=== PATIENT | female | born 1945 | race Caucasian/White ===

== ENCOUNTER → 2016-05-27 | Outpatient (CLI) | payer MEDICARE, BC ==
[~2016-05-27] MED LIST: ASPI1TAB69 PO; ASPI81TA82 PO; CALC1TAB87 PO; COZA50TA PO; DILA2TAB2 PO; HYDR200T3 PO; METO25CR PO; METO25TA6 PO; MULTTAB67 PO; NAPR220T95 PO; OMEP20TA39 PO; OMEP40CA2 PO; TAB-TAB PO; VITA400C2 PO; VITA400C70 PO; ZOCO80TA PO
[2016-05-27 08:01] LABS: HEMATOCRIT 42.3 % (35.0-46.0); MEAN CELL VOLUME 94.9 FL (80.0-100.0); MEAN CORPUSCULAR HEMOGLOBIN 31.5 PG (27.0-34.0); MEAN CORPUSCULAR HGB CONC 33.2 % (32.0-36.0); PLATELET COUNT 263 TH/MM3 (150-450); RED BLOOD COUNT 4.46 MIL/MM3 (4.00-5.30); RED CELL DISTRIBUTION WIDTH 13.4 % (11.6-17.2); REVIEW FLAG FINAL; WHITE BLOOD COUNT 6.2 TH/MM3 (4.0-11.0)
[2016-05-27 08:18] LABS: ALKALINE PHOSPHATASE 88 U/L (45-117); ALT (GPT) 18 U/L (10-53); ANION GAP 7 MEQ/L (5-15); AST (GOT) 19 U/L (15-37); BICARBONATE 28.9 MEQ/L (21.0-32.0); BLOOD UREA NITROGEN 24 MG/DL (7-18); CHLORIDE 102 MEQ/L (98-107); GLOMERULAR FILTRATION RATE 60 ML/MIN (>89); GLUCOSE,FASTING 97 MG/DL (74-99); HDL CHOLESTEROL 95.3 MG/DL (40.0-60.0); LDL CHOLESTEROL 69 MG/DL (0-99); POTASSIUM 4.8 MEQ/L (3.5-5.1); SODIUM (NA) 138 MEQ/L (136-145); TOTAL BILIRUBIN ADULT 0.4 MG/DL (0.2-1.0)
== END ==
LOC: CLAB 07:21
PROVIDERS: ATTEND Family Medicine
DX: E78.5 Hyperlipidemia, unspecified (principal); I10 Essential (primary) hypertension
CPT/HCPCS: 36415; 80053; 80061; 85027

== ENCOUNTER → 2016-06-11 | Day surgery (SDC) | payer MEDICARE, BC ==
[~2016-06-11] MED LIST changes: -ASPI81TA82 PO; +BUPIVACAINE HCL PF 0.5% 30 ML VIAL ONE; -METO25CR PO; -OMEP20TA39 PO; +PROPOFOL 200 MG/20 ML AMP IV ONE; -TAB-TAB PO; +TRIAMCINOLONE ACETONIDE 40 MG/ML VIAL I-ARTICULR ONE; -VITA400C70 PO; +methylPREDNISolone ACETATE 40 MG/ML VIAL I-ARTICULR ONE
--- NOTE | 2016-06-15 09:38 | M6 ---
cc: LITA MEDRANO M.D. DATE: 06/11/2016 1945 PROCEDURE Fluoroscopically guided injection bilateral sacroiliac joints. History and physical was completed and signed. Consent was signed. Procedure site was marked. Medications were listed and reconciled. Pain score was recorded. Allergies were noted. Time out was taken. Fluoroscopy time was recorded where applicable. Sedation was administered or directed by Dr. Medrano. The patient was given oxygen. The patient was monitored by a registered nurse. Total procedure time was greater than 15 minutes. IV was started, blood pressure cuff, pulse oximeter and EKG were applied. The patient was placed in the prone position on a Hever table, sedated with small amounts of propofol titrated to effect. Vital signs were monitored and remained stable throughout the procedure. The sacral area was prepped with alcohol and 10% Betadine solution and draped with sterile drapes. Fluoroscopy was used shooting from medial to lateral to clearly visualize the posterior joint line of the bilateral sacroiliac joints. Separate sterile 5-inch 22-gauge spinal needles were advanced into these joints under fluoroscopic guidance. There was negative aspiration for blood or any other type of fluid. At each location the patient was given 2 mL of 0.5% Marcaine, 20 mg of Depo-Medrol and 20 mg of Kenalog. Following the procedure the patient was taken to the recovery room with stable vital signs, neurologically intact. W. MD CHIRAG Edwards/BRENDA /9:14 AM /9:34 AM
== END | disposition home or self-care (01) ==
LOC: PHSDC 07:34
PROVIDERS: ATTEND Pain Medicine Interventional Pain Medicine
DX: M54.5 Low back pain (principal)
CPT/HCPCS: 99152; G0260; J1030; J3301; 27096

== ENCOUNTER 2016-07-27 10:23 | Emergency (ER) | payer MEDICARE, BC ==
[~2016-07-27] VITALS: Ht 152.4 cm; Wt 50.0 kg
[~2016-07-27 10:23] MED LIST changes: -BUPIVACAINE HCL PF 0.5% 30 ML VIAL ONE; -CALC1TAB87 PO; -DILA2TAB2 PO; -HYDR200T3 PO; -PROPOFOL 200 MG/20 ML AMP IV ONE; -TRIAMCINOLONE ACETONIDE 40 MG/ML VIAL I-ARTICULR ONE; -methylPREDNISolone ACETATE 40 MG/ML VIAL I-ARTICULR ONE
[2016-07-27 10:25] VITALS: BP 173/83; PULSE 89; RESP 17; TEMP 98.1; O2SAT 98
[2016-07-27 10:37] VITALS: BP 160/93; PULSE 75; RESP 20; O2SAT 96
[2016-07-27] MEDS ORDERED: CALC1TAB87 PO (10:58)
[2016-07-27] MEDS ORDERED: ONDANSETRON HCL 4 MG/2 ML VIAL IM ONE (11:30)
[2016-07-27] MEDS ORDERED: KETOROLAC TROMETHAMINE 60 MG/2 ML (IM) VIAL IM ONE (11:30)
[2016-07-27] MEDS ORDERED: MORPHINE SULFATE 4 MG/ML INJ IM ONE (11:30)
--- NOTE | 2016-07-27 11:35 | PD ---
HPI Chief Complaint: Back/ Neck Pain or Injury Time Seen by Provider: 10:45 Travel History International Travel<30 days: No Contact w/Intl Traveler<30days: No Traveled to known affect area: No History of Present Illness HPI The patient was seen and examined in the presence of the nurse. She complains of back pain. No acute injury. She's had back pain for many many years. She' s had multiple back surgeries. She sees chronic pain management and gets sacroiliac joint injections. She had an MRI of the lumbosacral spine a few days ago which revealed spinal stenosis and a new lumbar compression fracture. She was referred to neurosurgery but that has not happened yet. Symptoms severity is moderate and at times severe. Worse with movement. No sciatic radiation. PFSH Past Medical History Arthritis: Yes Autoimmune Disease: No Blood Disorders: No Heart Rhythm Problems: No Cancer: No Cardiac Catheterization: Yes (1988,NO STENT) Cardiovascular Problems: No High Cholesterol: Yes Chest Pain: No Congestive Heart Failure: No Cerebrovascular Accident: No Diabetes: No Diminished Hearing: No Endocrine: No Gastrointestinal Disorders: Yes (CURRENTLY NAUSEATED, ACID REFLUX, DIVERTICULOSIS) GERD: Yes Glaucoma: Yes (BILATERAL) Genitourinary: Yes (UTI'S) Headaches: Yes Hepatitis: No Hiatal Hernia: No Hypertension: Yes Immune Disorder: No Implanted Vascular Access Dvce: Yes Musculoskeletal: Yes (OSTEOARTHRITIS,DEGENERATIVE DISC DISEASE, BACK/NECK PROBLEMS) Neurologic: No Psychiatric: No Reproductive: No Respiratory: Yes (ACID REFLUX, HX OF STOMACH ULCER) Migraines: Yes Myocardial Infarction: No Seizures: No Thyroid Disease: No Ulcer: No Influenza Vaccination: Yes PNEUMOCCOCAL Vaccine (Year): 1 Menopausal: Yes Past Surgical History Abdominal Surgery: Yes (PARTIAL COLECTOMY 1994, APPENDECTOMY, CHOLECYSTECTOMY) AICD: No Appendectomy: Yes Body Medical Devices: PLATE AND SCREWS IN NECK, LOWER BACK Cardiac Surgery: No Cholecystectomy: Yes Coronary Stent: Yes Ear Surgery: No Endocrine Surgery: Yes (CERVICAL SURGERIES X 5--FUSION 2011, LUMBAR FUSION 2003 ) Eye Surgery: Yes (DANIEL CATARACT SURGERY, LASER SURGERY FOR GLAUCOMA DANIEL) Genitourinary Surgery: No Gynecologic Surgery: Yes (HYSTERECTOMY) Hysterectomy: Yes Oral Surgery: No Pacemaker: No Thoracic Surgery: No Other Surgery: Yes Social History Alcohol Use: Yes (OCASS) Tobacco Use: Yes (1/2 PPD) Substance Use: No Allergies-Medications (Allergen,Severity, Reaction): Coded Allergies: Keflex (Verified Allergy, Severe, Respiratory Failure, 07/27/16) Latex (Verified Allergy, Severe, Rash, 07/27/16) Macrobid (Verified Allergy, Severe, RYANN AKRY SYNDROME, 07/27/16) Penicillin (Verified Allergy, Severe, Swelling, 07/27/16) Sulfa (Verified Allergy, Severe, RESP DISTRESS, 07/27/16) Azithromycin (Unverified Allergy, Intermediate, RASH, 07/27/16) Macrodantin (Verified Allergy, Unknown, RYANN KARY SYNDROME, 07/27/16) Reported Meds & Prescriptions Reported Meds & Active Scripts Active Reported Calcium 600 with Vitamin D (Calcium Carbonate-Cholecalciferol) 600-400 mg-Unit Tab 1 Tab PO DAILY Aspirin 81 Mg Tabdr 81 Mg PO DAILY Cozaar (Losartan Potassium) 50 Mg Tab 50 Mg PO DAILY Metoprolol Succinate ER 24 HR (Metoprolol Succinate) 25 Mg Tab 25 Mg PO DAILY Multiple Vitamin 1 Tab 1 Tab PO DAILY Aleve (Naproxen Sodium) 220 Mg Tab 220 Mg PO DAILY PRN Omeprazole 40 Mg Cap 40 Mg PO DAILY Zocor (Simvastatin) 80 Mg Tab 80 Mg PO DAILY Vitamin E 400 Unit Cap 400 Units PO DAILY Review of Systems General / Constitutional: No: Fever Eyes: No: Visual changes HENT: No: Headaches Cardiovascular: No: Chest Pain or Discomfort Respiratory: No: Shortness of Breath Gastrointestinal: No: Abdominal Pain Genitourinary: No: Dysuria Musculoskeletal: Positive: Pain Skin: No Rash Neurologic: No: Weakness Psychiatric: No: Depression Endocrine: No: Polydipsia Hematologic/Lymphatic: No: Easy Bruising Physical Exam Narrative GENERAL: Well-nourished, well-developed patient with back pain . SKIN: Warm and dry. HEAD: Atraumatic. Normocephalic. EYES: Pupils equal and round. No scleral icterus. No injection or drainage. ENT: No nasal bleeding or discharge. Mucous membranes pink and moist. NECK: Trachea midline. No JVD. CARDIOVASCULAR: Regular rate and rhythm. No murmur appreciated. RESPIRATORY: No accessory muscle use. Clear to auscultation. Breath sounds equal bilaterally. GASTROINTESTINAL: Abdomen soft, non-tender, nondistended. Hepatic and splenic margins not palpable. MUSCULOSKELETAL: No obvious deformities. No clubbing. No cyanosis. No edema. Well-healed back scars. No redness or warmth. No bruising. NEUROLOGICAL: Awake and alert. No obvious cranial nerve deficits. Motor grossly within normal limits. Normal speech. PSYCHIATRIC: Appropriate mood and affect; insight and judgment normal. Data Data Last Documented VS Vital Signs Date Time Temp Pulse Resp B/P Pulse Ox O2 Delivery O2 Flow Rate FiO2 07/27/16 10:53 78 07/27/16 10:37 20 160/93 96 07/27/16 10:25 98.1 Orders Ondansetron Inj (Zofran Inj) (07/27/16 11:30) Morphine Inj (Morphine Inj) (07/27/16 11:30) Ketorolac Inj (Toradol Inj) (07/27/16 11:30) MDM Medical Decision Making Medical Screen Exam Complete: Yes Emergency Medical Condition: Yes Medical Record Reviewed: Yes Differential Diagnosis Compression fracture, spinal stenosis, arthritis Narrative Course I have reviewed the patient's electronic medical record. Reviewed her most recent injection noted from Dr. Medrano I reviewed her MRI results from [facility] Patient will need neurosurgery evaluation. She has already been referred but is awaiting her appointment time. No acute neurologic deficit. I gave her injection of morphine and Zofran and Toradol for symptom relief Wrote her some stronger medication for pain Should follow-up with her pain management physician and neurosurgeon Diagnosis Primary Impression: Compression fracture of L1 lumbar vertebra Qualified Code: S32.010A - Compression fracture of L1 lumbar vertebra, closed , initial encounter Additional Impression: Chronic back pain greater than 3 months duration Additional Instructions: The patient was advised to follow up with their neurosurgeon and pain management physician and return if they worsen. The patient was warned about potential sedation for the medications they will receive on prescription. Med/Other Pt SpecificInfo: Prescription(s) given Scripts Hydromorphone (Dilaudid)2 Mg Tab2 Mg PO Q6H PRN (Pain Management) #20 TAB Ref 0 Prov:Andrea Jacobson MD 07/27/16 Disposition: 01 DISCHARGE HOME Condition: Stable Andrea Jacobson MD Jul 27, 2016 11:35
[2016-07-27] MEDS ORDERED: DILA2TAB2 PO (12:57)
[2016-07-27 13:15] VITALS: BP 109/62; PULSE 67; O2SAT 94
[2016-07-27] MEDS ORDERED: KETOROLAC TROMETHAMINE 30 MG/ML (IVP) VIAL IVP ONE (13:15)
[2016-07-27] MEDS ORDERED: MORPHINE SULFATE 4 MG/ML INJ IV PUSH ONE (13:15)
[2016-07-27] MEDS ORDERED: ONDANSETRON HCL 4 MG/2 ML VIAL IV ONE (13:15)
[2016-07-27 13:43] VITALS: RESP 18
[2016-07-27 13:44] VITALS: BP 95/55
== END 2016-07-27 14:22 | disposition home or self-care (01) ==
LOC: NEPE 10:23
DX: M48.56XA Collapsed vertebra, not elsewhere classified, lumbar region, initial encounter for fracture (principal); G89.29 Other chronic pain
CPT/HCPCS: 96374; 96375; 99283; J1885; J2270; J2405

== ENCOUNTER → 2016-07-29 | Day surgery (SDC) | payer MEDICARE, BC ==
[~2016-07-29] MED LIST changes: +*MEPERIDINE 25 MG INJ VIAL PERIprocedural Use ONLY ONE; +BUPIVACAINE HCL PF 0.75% 30 ML VIAL ONE; +CALC1TAB87 PO; +DILA2TAB2 PO; +PROPOFOL 200 MG/20 ML AMP IV ONE; +TRIAMCINOLONE ACETONIDE 40 MG/ML VIAL I-ARTICULR ONE
--- NOTE | 2016-08-02 22:06 | M6 ---
cc: LITA MEDRANO M.D. DATE 07/29/16 1943 PROCEDURE Fluoroscopically guided injection bilateral lumbar facet joints (bilateral L1-2, L2-3 and L3-4 facet joints). History and physical was completed and signed. Consent was signed. Procedure site was marked. Medications were listed and reconciled. Pain score was recorded. Allergies were noted. Time out was taken. Fluoroscopy time was recorded where applicable. Sedation was administered or directed by Dr. Medrano. The patient was given oxygen. The patient was monitored by a registered nurse. Total procedure time was greater than 15 minutes. IV was started, blood pressure cuff, pulse oximeter and EKG were applied. The patient was placed in the prone position on a Hever table sedated with small amounts of propofol titrated to effect. Vital signs were monitored and remained stable throughout the procedure. The lumbar area was prepped with alcohol and 10% Betadine solution and draped with sterile drapes. Fluoroscopy was used in a Jaspal dog view to clearly visualize the bilateral lumbar facet joints at L1-2, L2-3 and L3-4. Separate sterile 3-1/2-inch 25-gauge spinal needles were advanced into these joints under fluoroscopic guidance. There was negative aspiration for blood or any other type of fluid. At each location, the patient was given 1 mL of Marcaine 0.5% which contained 10 mg of Kenalog. Following the procedure, the patient was taken to the recovery room with stable vital signs neurologically intact. She will be evaluated immediately and with followup to determine if she has a subjective decrease in her usual pain and a corresponding objective increase in her functional capabilities. The patient is status post lumbar fusion at L4-5. She is complaining of stabbing knife-like pains in the upper lumbar area and we will evaluate her immediately following this procedure to determine if her upper lumbar facet joints are her pain generators. W. MD CHIRAG Edwards/ /8:05 AM /10:00 PM
== END | disposition home or self-care (01) ==
LOC: PHSDC 06:58
PROVIDERS: ATTEND Pain Medicine Interventional Pain Medicine
DX: M54.5 Low back pain (principal)
CPT/HCPCS: 64493; 64494; 64495; 99152; J2175; J3301

== ENCOUNTER → 2016-08-07 | Outpatient (CLI) | payer MEDICARE, BC ==
[~2016-08-07] MED LIST changes: -*MEPERIDINE 25 MG INJ VIAL PERIprocedural Use ONLY ONE; -BUPIVACAINE HCL PF 0.75% 30 ML VIAL ONE; -PROPOFOL 200 MG/20 ML AMP IV ONE; -TRIAMCINOLONE ACETONIDE 40 MG/ML VIAL I-ARTICULR ONE
[2016-08-07 07:24] LABS: INTERNATIONAL NORMALIZED RATIO 0.9 RATIO; PROTHROMBIN TIME - PATIENT 10.2 SEC (9.8-11.6)
== END ==
LOC: CLAB 06:55
PROVIDERS: ATTEND Orthopaedic Surgery Orthopaedic Surgery of the Spine
DX: D68.9 Coagulation defect, unspecified (principal); Z79.01 Long term (current) use of anticoagulants
CPT/HCPCS: 36415; 85049; 85610

== ENCOUNTER → 2016-08-08 | Day surgery (SDC) | payer MEDICARE, BC ==
[~2016-08-08] MED LIST changes: +BUPIVACAINE/EPINEPHRINE 0.5% PF 30 ML VIAL ONE; +IOHEXOL 180 MG/ML 20 ML VIAL (for RAD DIAG) ONE; +KETOROLAC TROMETHAMINE 30 MG/ML (IVP) VIAL IV PUSH ONE; +LACTATED RINGER'S 1000 ML INJ 1,000 ML ONE; +LIDOCAINE 1%/EPINEPHrine 1:100,000 SOLN 20 ML VIAL ONE; +MIDAZOLAM HCL 2 MG/2 ML VIAL ONE; +PROPOFOL 200 MG/20 ML AMP IV ONE; +ceFAZolin 2 GM PREMIX 50 ML ONE
--- NOTE | 2016-08-08 15:31 | TN ---
cc: SHERITA PERERA DATE OF SURGERY 08/08/2016 PREOPERATIVE DIAGNOSIS Compression fracture L1, subacute. POSTOPERATIVE DIAGNOSIS Compression fracture L1, subacute. PROCEDURE Kyphoplasty of L1 and placement of a bone cement spacer. SURGEON Sherita Perera MD ANESTHESIA TIVA. ESTIMATED BLOOD LOSS Minimal. INDICATION This is a 71-year-old female who injured her back around Thanksgiving, almost four and a 1/2 months ago. The patient had been treated conservative. A recent MRI scan shows still significant bone marrow edema of the L1 vertebral body. She is very painful and symptomatic and now presents for surgical treatment. PROCEDURE The patient was brought to the operating, given limited sedation. Patient rolled to prone position on the radiolucent table. All pressure points were protected. The back was scrubbed with alcohol, followed by Hibiclens, followed by Chloraprep and draped sterilely. Antibiotics were given within a 1 hour time window and a time-out was done. AP and lateral radiographic images were used identifying the L1 vertebral body. This was compared to preoperative studies. A single balloon approach was utilized from left side using a 20 mm Kyphon balloon. A sequence of local anesthesia, a small incision and an awl placed down through the bone and into the vertebral body at an oblique angle. A 20 mm Kyphon balloon was placed centrally. This was elevated having poor correction of the deformity. This was clearly a subacute to early chronic fracture. On the back table methacrylate was mixed. After approximately 12 minutes the cement was injected. We had good penetration within the vertebral body without evidence of extravasation. The cement was allowed to harden. The tubes were removed. Intraoperative x-rays were obtained. The wound was irrigated, anesthetized and closed with 4-0 Vicryl followed by Dermabond. The patient was awakened and taken to the recovery room in satisfactory condition. Sherita Perera MD [facility] [place] /2:55 PM /3:21 PM
== END | disposition home or self-care (01) ==
LOC: ESDC 12:30
PROVIDERS: ATTEND Orthopaedic Surgery Orthopaedic Surgery of the Spine
DX: S32.010A Wedge compression fracture of first lumbar vertebra, initial encounter for closed fracture (principal)
CPT/HCPCS: 01936; 22514; 72100; J0690; J1885; J2250; J3010; J7120; Q9965

== ENCOUNTER → 2016-08-29 | Outpatient (CLI) | payer MEDICARE, BC ==
[~2016-08-29] MED LIST changes: -BUPIVACAINE/EPINEPHRINE 0.5% PF 30 ML VIAL ONE; -IOHEXOL 180 MG/ML 20 ML VIAL (for RAD DIAG) ONE; -KETOROLAC TROMETHAMINE 30 MG/ML (IVP) VIAL IV PUSH ONE; -LACTATED RINGER'S 1000 ML INJ 1,000 ML ONE; -LIDOCAINE 1%/EPINEPHrine 1:100,000 SOLN 20 ML VIAL ONE; -MIDAZOLAM HCL 2 MG/2 ML VIAL ONE; -PROPOFOL 200 MG/20 ML AMP IV ONE; -ceFAZolin 2 GM PREMIX 50 ML ONE
== END ==
LOC: CLAB 10:31
PROVIDERS: ATTEND Orthopaedic Surgery Orthopaedic Surgery of the Spine
DX: E55.9 Vitamin D deficiency, unspecified (principal); E83.30 Disorder of phosphorus metabolism, unspecified; E83.50 Unspecified disorder of calcium metabolism; M81.8 Other osteoporosis without current pathological fracture
CPT/HCPCS: 36415; 82306; 82310; 84100

== ENCOUNTER → 2016-10-07 | Outpatient (CLI) | payer MEDICARE, BC ==
[2016-10-07 07:33] LABS: HEMATOCRIT 43.3 % (35.0-46.0); MEAN CELL VOLUME 96.2 FL (80.0-100.0); MEAN CORPUSCULAR HGB CONC 33.3 % (32.0-36.0); PLATELET COUNT 294 TH/MM3 (150-450); REVIEW FLAG FINAL; WHITE BLOOD COUNT 5.9 TH/MM3 (4.0-11.0)
[2016-10-07 08:01] LABS: ALKALINE PHOSPHATASE 82 U/L (45-117); ALT (GPT) 28 U/L (10-53); ANION GAP 7 MEQ/L (5-15); AST (GOT) 24 U/L (15-37); BICARBONATE 28.8 MEQ/L (21.0-32.0); BLOOD UREA NITROGEN 18 MG/DL (7-18); CHLORIDE 105 MEQ/L (98-107); GLOMERULAR FILTRATION RATE 86 ML/MIN (>89); GLUCOSE,FASTING 99 MG/DL (74-99); HDL CHOLESTEROL 97.1 MG/DL (40.0-60.0); LDL CHOLESTEROL 74 MG/DL (0-99); POTASSIUM 4.5 MEQ/L (3.5-5.1); SODIUM (NA) 141 MEQ/L (136-145); TOTAL BILIRUBIN ADULT 0.3 MG/DL (0.2-1.0)
== END ==
LOC: CLAB 07:05
PROVIDERS: ATTEND Family Medicine
DX: E78.5 Hyperlipidemia, unspecified (principal); I10 Essential (primary) hypertension
CPT/HCPCS: 36415; 80053; 80061; 85027

== ENCOUNTER → 2017-01-27 | Outpatient (CLI) | payer MEDICARE, BC ==
[2017-01-27 08:05] LABS: HEMATOCRIT 42.2 % (35.0-46.0); MEAN CELL VOLUME 95.4 FL (80.0-100.0); MEAN CORPUSCULAR HEMOGLOBIN 31.7 PG (27.0-34.0); MEAN CORPUSCULAR HGB CONC 33.3 % (32.0-36.0); PLATELET COUNT 244 TH/MM3 (150-450); RED BLOOD COUNT 4.42 MIL/MM3 (4.00-5.30); RED CELL DISTRIBUTION WIDTH 12.7 % (11.6-17.2); REVIEW FLAG FINAL; WHITE BLOOD COUNT 5.7 TH/MM3 (4.0-11.0)
[2017-01-27 08:23] LABS: ALT (GPT) 23 U/L (10-53)
[2017-01-27 08:37] LABS: ALKALINE PHOSPHATASE 72 U/L (45-117); LDL CHOLESTEROL 80 MG/DL (0-99); TOTAL BILIRUBIN ADULT 0.3 MG/DL (0.2-1.0)
[2017-01-27 08:45] LABS: AST (GOT) 28 U/L (15-37); BICARBONATE 31.4 MEQ/L (21.0-32.0); BLOOD UREA NITROGEN 20 MG/DL (7-18); GLOMERULAR FILTRATION RATE 71 ML/MIN (>89); GLUCOSE,FASTING 87 MG/DL (74-99)
[2017-01-27 09:29] LABS: ANION GAP 0 MEQ/L (5-15); CHLORIDE 107 MEQ/L (98-107); SODIUM (NA) 138 MEQ/L (136-145)
[2017-01-27 09:31] LABS: POTASSIUM 5.4 MEQ/L (3.5-5.1)
== END ==
LOC: CLAB 07:21
PROVIDERS: ATTEND Family Medicine
DX: I10 Essential (primary) hypertension (principal); E78.5 Hyperlipidemia, unspecified
CPT/HCPCS: 36415; 80053; 80061; 85027

== ENCOUNTER → 2017-05-26 | Outpatient (CLI) | payer BC, MEDICARE ==
[~2017-05-26] MED LIST changes: -DILA2TAB2 PO; +DILA2TAB4 PO; +METO1TAB42 PO; -METO25TA6 PO
[2017-05-26 07:40] LABS: HEMOGLOBIN 13.6 GM/DL (11.6-15.3); MEAN CELL VOLUME 96.4 FL (80.0-100.0); MEAN CORPUSCULAR HEMOGLOBIN 32.9 PG (27.0-34.0); MEAN CORPUSCULAR HGB CONC 34.1 % (32.0-36.0); MEAN PLATELET VOLUME 7.2 FL (7.0-11.0); PLATELET COUNT 293 TH/MM3 (150-450); RED BLOOD COUNT 4.15 MIL/MM3 (4.00-5.30); RED CELL DISTRIBUTION WIDTH 13.6 % (11.6-17.2)
[2017-05-26 07:51] LABS: ALBUMIN 3.9 GM/DL (3.4-5.0); ALT (GPT) 38 U/L (10-53); BICARBONATE 27.2 MEQ/L (21.0-32.0); BLOOD UREA NITROGEN 12 MG/DL (7-18); CALCIUM 9.4 MG/DL (8.5-10.1); CHLORIDE 106 MEQ/L (98-107); GLUCOSE,FASTING 101 MG/DL (74-99); SODIUM (NA) 140 MEQ/L (136-145)
[2017-05-26 08:18] LABS: ALKALINE PHOSPHATASE 64 U/L (45-117); AST (GOT) 45 U/L (15-37); CHOLESTEROL 166 MG/DL (120-200); CHOLESTEROL/ HDL RATIO 1.55 RATIO; CREATININE 0.89 MG/DL (0.50-1.00); GLOMERULAR FILTRATION RATE 62 ML/MIN (>89); HDL CHOLESTEROL 106.6 MG/DL (40.0-60.0); LDL CHOLESTEROL 49 MG/DL (0-99); TOTAL BILIRUBIN ADULT 0.4 MG/DL (0.2-1.0); TOTAL PROTEIN 7.6 GM/DL (6.4-8.2); TRIGLYCERIDES 54 MG/DL (42-150)
== END ==
LOC: CLAB 07:03
PROVIDERS: ATTEND Family Medicine
DX: E53.8 Deficiency of other specified B group vitamins (principal); E78.5 Hyperlipidemia, unspecified; I10 Essential (primary) hypertension
CPT/HCPCS: 36415; 80053; 80061; 82607; 85027

== ENCOUNTER → 2017-09-03 | Outpatient (CLI) | payer MEDICARE ==
[2017-09-03 07:54] LABS: HEMATOCRIT 39.9 % (35.0-46.0); HEMOGLOBIN 13.2 GM/DL (11.6-15.3); MEAN CELL VOLUME 95.5 FL (80.0-100.0); MEAN CORPUSCULAR HEMOGLOBIN 31.6 PG (27.0-34.0); MEAN CORPUSCULAR HGB CONC 33.1 % (32.0-36.0); MEAN PLATELET VOLUME 7.5 FL (7.0-11.0); PLATELET COUNT 272 TH/MM3 (150-450); RED BLOOD COUNT 4.18 MIL/MM3 (4.00-5.30); WHITE BLOOD COUNT 6.5 TH/MM3 (4.0-11.0)
[2017-09-03 08:31] LABS: ALBUMIN 3.6 GM/DL (3.4-5.0); ALKALINE PHOSPHATASE 60 U/L (45-117); ALT (GPT) 21 U/L (10-53); AST (GOT) 28 U/L (15-37); BICARBONATE 30.6 MEQ/L (21.0-32.0); BLOOD UREA NITROGEN 29 MG/DL (7-18); CALCIUM 9.3 MG/DL (8.5-10.1); CHLORIDE 107 MEQ/L (98-107); CHOLESTEROL 160 MG/DL (120-200); CHOLESTEROL/ HDL RATIO 2.23 RATIO; CREATININE 1.01 MG/DL (0.50-1.00); GLOMERULAR FILTRATION RATE 54 ML/MIN (>89); GLUCOSE,FASTING 86 MG/DL (74-99); HDL CHOLESTEROL 71.5 MG/DL (40.0-60.0); LDL CHOLESTEROL 60 MG/DL (0-99); SODIUM (NA) 142 MEQ/L (136-145); TOTAL BILIRUBIN ADULT 0.4 MG/DL (0.2-1.0); TOTAL PROTEIN 6.9 GM/DL (6.4-8.2); TRIGLYCERIDES 141 MG/DL (42-150)
== END ==
LOC: CLAB 07:22
PROVIDERS: ATTEND Family Medicine
DX: E78.5 Hyperlipidemia, unspecified (principal); I10 Essential (primary) hypertension
CPT/HCPCS: 36415; 80053; 80061; 85027

== ENCOUNTER → 2017-10-28 | Outpatient (CLI) | payer MEDICARE ==
[2017-10-28 09:47] LABS: HEMATOCRIT 38.8 % (35.0-46.0); HEMOGLOBIN 12.8 GM/DL (11.6-15.3); MEAN CORPUSCULAR HEMOGLOBIN 31.7 PG (27.0-34.0); MEAN PLATELET VOLUME 7.3 FL (7.0-11.0); PLATELET COUNT 241 TH/MM3 (150-450); RED BLOOD COUNT 4.04 MIL/MM3 (4.00-5.30); RED CELL DISTRIBUTION WIDTH 13.1 % (11.6-17.2); WHITE BLOOD COUNT 9.3 TH/MM3 (4.0-11.0)
[2017-10-28 10:21] LABS: ALBUMIN 3.9 GM/DL (3.4-5.0); ALT (GPT) 15 U/L (10-53); AST (GOT) 18 U/L (15-37); BICARBONATE 25.6 MEQ/L (21.0-32.0); BLOOD UREA NITROGEN 19 MG/DL (7-18); CALCIUM 9.2 MG/DL (8.5-10.1); CHLORIDE 106 MEQ/L (98-107); CREATININE 0.96 MG/DL (0.50-1.00); GLOMERULAR FILTRATION RATE 57 ML/MIN (>89); GLUCOSE,FASTING 117 MG/DL (74-99); SODIUM (NA) 143 MEQ/L (136-145)
[2017-10-28 10:23] LABS: ALKALINE PHOSPHATASE 65 U/L (45-117); TOTAL BILIRUBIN ADULT 0.4 MG/DL (0.2-1.0); TOTAL PROTEIN 7.3 GM/DL (6.4-8.2)
== END ==
LOC: CLAB 09:16
PROVIDERS: ATTEND Family Medicine
DX: E78.5 Hyperlipidemia, unspecified (principal)
CPT/HCPCS: 36415; 80053; 85027